=== PATIENT | female | born 1950 | race Caucasian/White ===

== ENCOUNTER 2017-08-12 06:47 | Emergency (ER) | payer OTHER ==
[~2017-08-12] VITALS: Ht 149.9 cm; Wt 63.5 kg
[~2017-08-12 06:47] MED LIST: ATACAND4 MG PO; BACTROBAN22 GM TP; PAXIL10 MG/5 ML PO; SEPTRA DS TABLE1 TAB PO; TUSSI-PRES LIQ118 ML PO; VYTONE TP
[2017-08-12] MEDS ORDERED: ATIVAN1 M1 (07:16)
== END 2017-08-13 06:36 | disposition home or self-care (01) ==
LOC: ER 06:47
DX: J45.909 Unspecified asthma, uncomplicated (principal); J11.1 Influenza due to unidentified influenza virus with other respiratory manifestations; K29.70 Gastritis, unspecified, without bleeding

== ENCOUNTER 2017-08-17 21:22 | Emergency (ER) | payer OTHER ==
[~2017-08-17] VITALS: Ht 144.8 cm; Wt 63.5 kg
[~2017-08-17 21:22] MED LIST changes: +ATIVAN1 M1
[2017-08-17] MEDS ORDERED: SIMVASTATIN5 MG (21:45)
[2017-08-17] MEDS ORDERED: LISINOPRIL10 MG (21:45)
[2017-08-18] MEDS ORDERED: BACTRIM 400-801 EACH PO (03:11)
[2017-08-18] MEDS ORDERED: MECLIZINE HCL25 M1 PO (03:11)
== END 2017-08-18 03:15 | disposition home or self-care (01) ==
LOC: ER 21:22
DX: R42 Dizziness and giddiness (principal); N39.0 Urinary tract infection, site not specified

== ENCOUNTER 2019-04-08 16:14 | Emergency (ER) | payer OTHER ==
[~2019-04-08] VITALS: Ht 149.9 cm; Wt 68.0 kg
[~2019-04-08 16:14] MED LIST changes: +BACTRIM 400-801 EACH PO; +LISINOPRIL10 MG; +MECLIZINE HCL25 M1 PO; +SIMVASTATIN5 MG
[2019-04-08] MEDS ORDERED: LIPITOR20 MG (16:26)
== END 2019-04-08 20:29 | disposition home or self-care (01) ==
LOC: ER 16:14
DX: M79.7 Fibromyalgia (principal); R07.89 Other chest pain; N39.0 Urinary tract infection, site not specified

== ENCOUNTER 2021-03-27 09:24 | Outpatient (CLI) | payer OTHER ==
[~2021-03-27 09:24] MED LIST changes: +LIPITOR20 MG
== END 2021-03-27 09:28 | disposition home or self-care (01) ==
LOC: NUCLEAR 09:24
PROVIDERS: ATTEND Internal Medicine Cardiovascular Disease
DX: I35.0 Nonrheumatic aortic (valve) stenosis (principal)

== ENCOUNTER 2021-08-27 07:22 | Outpatient (CLI) | payer OTHER | END 2021-08-27 07:27 | disposition home or self-care (01) | LOC: RX STUDY 07:22 | PROVIDERS: ATTEND Specialist | DX: Z12.31 Encounter for screening mammogram for malignant neoplasm of breast (principal); R13.14 Dysphagia, pharyngoesophageal phase ==

== ENCOUNTER 2022-11-12 12:19 | Emergency (ER) | payer OTHER ==
[~2022-11-12] VITALS: Ht 149.9 cm; Wt 69.9 kg
[2022-11-12] MEDS ORDERED: GLUMETZA500 MG (12:49)
[2022-11-12] MEDS ORDERED: MEDROLPACK PO (12:49)
[2022-11-12] MEDS ORDERED: CRESTOR5 MG PO (12:50)
[2022-11-12] MEDS ORDERED: DICLOFENAC POTA50 MG PO (14:53)
[2022-11-12] MEDS ORDERED: CYCLOBENZAPRINE10 MG PO (14:53)
[2022-11-12] MEDS ORDERED: TYLENOL ARTHRI650 MG PO (14:53)
== END 2022-11-12 15:25 | disposition home or self-care (01) ==
LOC: ER 12:19
DX: M54.50 Low back pain, unspecified (principal); G57.01 Lesion of sciatic nerve, right lower limb; I10 Essential (primary) hypertension; E11.9 Type 2 diabetes mellitus without complications; Z79.84 Long term (current) use of oral hypoglycemic drugs; Z88.5 Allergy status to narcotic agent